=== PATIENT | female | born 1945 | race Caucasian/White ===

== ENCOUNTER 2017-02-22 18:58 | Emergency (ER) | payer MEDICARE ==
[~2017-02-22 18:58] MED LIST: ACETAMINOPHEN325 MG PO; CELEXA10 MG PO; CETIRIZINE HCL5 MG PO; COZAAR25 MG PO; ELIQUIS5 MG PO; HYDROCODONE-APA1 TAB PO; LOVENOX60 MG/0.6 SC; ULTRAM50 MG PO; XARELTO20 MG PO; ZYRTEC10 MG PO
== END 2017-02-22 21:41 | disposition home or self-care (01) ==
LOC: D.ER 18:58
DX: S00.03XA Contusion of scalp, initial encounter (principal); W19.XXXA Unspecified fall, initial encounter; Y93.89 Activity, other specified; Y92.89 Other specified places as the place of occurrence of the external cause; M54.2 Cervicalgia; M54.6 Pain in thoracic spine; I10 Essential (primary) hypertension